=== PATIENT | male | born 1995 | race African-American/Black ===

== ENCOUNTER 2016-12-17 01:19 | Emergency (ER) | payer OTHER ==
[~2016-12-17] VITALS: Ht 177.8 cm; Wt 60.7 kg
[2016-12-17] MEDS ORDERED: LIDOCAINE 1%, 20ML ONE (02:16)
[2016-12-17] MEDS ORDERED: LIDOCAINE 1%, 20ML INFIL ONE (02:30)
[2016-12-17 03:22] VITALS: BP 132/87
== END 2016-12-17 03:59 | disposition home or self-care (01) ==
LOC: ED 03:30
DX: S01.511A Laceration without foreign body of lip, initial encounter (principal); F12.10 Cannabis abuse, uncomplicated; W18.09XA Striking against other object with subsequent fall, initial encounter; Y93.89 Activity, other specified; Y99.8 Other external cause status; Y92.091 Bathroom in other non-institutional residence as the place of occurrence of the external cause
CPT/HCPCS: 13152; 93005